=== PATIENT | male | born 1990 | race Hispanic/Latino ===

== ENCOUNTER 2019-10-14 07:18 | Emergency (ER) | payer OTHER ==
[2019-10-14] MEDS ORDERED: LIDOCAINE HCL-MPF 1% 2ML VIAL ONE (08:21)
[2019-10-14] MEDS ORDERED: CEFTRIAXONE SODIUM 500 MG VIAL ONE (08:21)
[2019-10-14 08:42] LABS: APPEARANCE,URINE Cloudy (CLEAR); BILIRUBIN,URINE Negative (NEGATIVE); COLOR,URINE Yellow (YELLOW); GLUCOSE, URINE (UA) Negative (NEGATIVE); KETONES,URINE Negative (NEGATIVE); LEUKOCYTE ESTERASE ,URINE Large (NEGATIVE); NITRATE,URINE Negative (NEGATIVE); OCCULT BLOOD,URINE Large (NEGATIVE); PH,URINE 6.5 (5.0-8.0); PROTEIN,URINE POS 2+ mg/dL (NEGATIVE)
[2019-10-14 09:01] LABS: BACTERIA,URINE Rare /HPF (None Seen); RBC,URINE >100 /HPF (0-1); SQUAMOUS EPITHELIAL CELL,UR 0-2 /HPF (0-2); TRANSITIONAL EPI CELLS,URINE Rare /HPF (None Seen); WBC,URINE >100 /HPF (0-1)
== END 2019-10-14 10:32 | disposition home or self-care (01) ==
LOC: EDH 07:18
DX: N45.1 Epididymitis (principal); Z72.0 Tobacco use
CPT/HCPCS: 81001; 87077; 87088; 87186; 87486; 87797; 96372; 99283; J0696; J3490

== ENCOUNTER 2020-07-06 21:12 | Emergency (ER) | payer OTHER ==
[2020-07-06 21:41] LABS: BASOPHILS % (AUTO) 0.8 % (0.0-5.0); EOSINOPHILS % (AUTO) 3.8 % (0.0-8.0); HEMATOCRIT 44.1 % (42-54); LYMPHOCYTES % (AUTO) 24.2 % (21.0-51.0); MEAN CORPUSCULAR HEMOGLOBIN 28.5 pg (27.0-33.0); MEAN CORPUSCULAR HGB CONC 34.7 g/dL (32.0-36.0); MEAN CORPUSCULAR VOLUME 82.1 fL (79-99); MONOCYTES % (AUTO) 8.9 % (3.0-13.0); NEUTROPHILS % (AUTO) 61.4 % (40.0-77.0); PLATELET COUNT (AUTO) 242 K/uL (130-400); RED BLOOD CELL COUNT(AUTO) 5.37 MIL/uL (4.50-6.20); RED CELL DISTRIBUTION WIDTH 13.3 % (11.0-15.5); WHITE BLOOD COUNT (AUTO) 12.2 K/uL (4.8-10.8)
[2020-07-06 21:49] LABS: POTASSIUM 4.2 mmol/L (3.5-5.1)
[2020-07-06] MEDS ORDERED: SODIUM CHLORIDE 0.9% 1000ML 1,000 ML IV ONE (21:50)
[2020-07-06 21:53] LABS: INR 0.96 (0.85-1.15); PROTHROMBIN TIME 10.5 SEC (9.6-11.6)
[2020-07-06 21:54] LABS: ALBUMIN 3.9 g/dL (3.5-5.0); BILIRUBIN,TOTAL 0.3 mg/dL (0.2-1.0); PARTIAL THROMBOPLASTIN TIME 26.3 SEC (26.3-35.5); TOTAL PROTEIN, SERUM 8.2 g/dL (6.0-8.3)
== END 2020-07-06 22:51 | disposition home or self-care (01) ==
LOC: EDH 21:12
DX: K62.5 Hemorrhage of anus and rectum (principal); I95.1 Orthostatic hypotension; F31.9 Bipolar disorder, unspecified
CPT/HCPCS: 36415; 80053; 82270; 85025; 85610; 85730; 96360; 99283; J7030